=== PATIENT | female | born 1945 | race Caucasian/White ===

== ENCOUNTER 2020-05-30 07:11 | Outpatient (CLI) | payer MEDICARE, SELFPAY ==
--- NOTE | 2020-05-30 07:21 | USCV_ITS ---
Karen Ngo Age: 75 Gender: F : 1945 Exam Date: 05/30/2020 07:41 Ordering Phys: Roberto Johnsno MD Technologist: Rafa Calvin Exam Location: [facility] – [place] Indication: HYPERTENSION Aortic Velocity @ SMA (cm/s) 169 RIGHT KIDNEY LEFT KIDNEY Velocity (cm/s) Velocity (cm/s) Sys/Bo Sys/Bo Resistive Index Resistive Index 93.5 / 24.7 0.74 Proximal Renal Artery / 196.5 / 20.7 0.89 Mid Renal Artery / 113.8 / 17.7 0.84 Distal Renal Artery / 40.2 / 5.8 0.85 Hilar / 57.3 / 7.8 0.86 Upper Pole / 21.7 / 5.0 0.77 Mid Pole / 27.0 / 5.0 0.81 Lower Pole / 1.20 Renal Aortic Ratio Accleration Index (cm/sec2) 988.00 Hilar 968.00 Upper Pole 582.00 Mid Pole 406.00 Lower Pole 102.8 Kidney Length (mm) FINDINGS No comparisons. Mild elevation of systolic velocity mid right renal artery. Diastolic velocity is normal. Ratio remains normal Prior left nephrectomy. CONCLUSIONS Mild mid right renal artery stenosis. Dr. Mikayla Galvan DO (Electronically Signed) Final Date: 30 May 2020 08:24 S
== END 2020-05-30 07:12 | disposition home or self-care (01) ==
PROVIDERS: PCP Internal Medicine; Visit Provider Internal Medicine
DX: I10 Essential (primary) hypertension (principal); I70.1 Atherosclerosis of renal artery
CPT/HCPCS: 93975